=== PATIENT | female | born 1980 ===

== ENCOUNTER 2020-09-13 19:22 | Emergency (ER) | payer OTHER, SELFPAY ==
[2020-09-13 19:34] VITALS: BP 159/101; PULSE 99; RESP 18; TEMP 36.3; O2SAT 99; BMI 31.6
--- NOTE | 2020-09-13 23:11 | ED_ITS ---
HPI - COVID General: Chief Complaint: COVID symptoms Stated Complaint: covid symptoms Time Seen by Provider: 09/13/20 23:11 Triage information: No fever, cough or shortness of breath . Exposure to COVID + person last 14 days History of Present Illness: HPI Narrative: Patient is a 40-year-old female comes to the ED with upper respiratory symptoms. Patient says approximately 4 days ago she developed a sore throat and nasal congestion. She says her sore throat has went away but she still has some nasal congestion and a headache. She was around her parents for the holidays and they tested positive for COVID- 19. 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 Denies any cough, chest pain, shortness of breath, fevers, chills, nausea/vomiting, bladder or bowel symptoms. COVID 19 common symptoms: positive headache(s) (She described as sinus headache ), throat pain (started 4 days ago, but has now resolved) and nasal congestion; negative fever(s), chills, non-productive cough, productive cough, dyspnea, fatigue, nausea, vomiting or diarrhea COVID 19 other sytmptoms: negative chest pain COVID Results: SARS-CoV-2 Antigen (Rapid) Positive (Negative) H 09/13/20 23:44 09/13/20 Nasal/Oral Coronavirus 2019 PCR Pending 09/13/20 23:23 09/13/20 Review of Systems Const: Denies: fever(s), chills or fatigue Eyes: Denies: change in vision or eye discomfort ENMT: Reports: throat pain (started 4 days ago, but has now resolved), nasal discharge and nasal congestion; Denies: odynophagia Card: Denies: chest pain, palpitations, edema, swelling of feet/ankles, dyspnea on exertion or orthopnea Resp: Denies: dyspnea, productive cough or non-productive cough GI: Denies: abdominal pain, nausea, vomiting, diarrhea, constipation or hematochezia : Denies: flank pain, dysuria or hematuria Musc: Denies: neck pain, back pain or extremity swelling Skin/Breast: Denies: rash or new lesions Neuro: Reports: headache(s) (She described as sinus headache ); Denies: numbness in extremities or weakness in extremities PFSH ED PFSH: Social History Smoking and tobacco status: never smoked Alcohol intake: never Female Reproductive History: Date of last menstrual period: 09/06/20 Physical Exam Const: COMMON NORMALS: no acute distress, patient oriented x3, healthy appearing and alert GENERAL APPEARANCE: cooperative and comfortable HENMT: COMMON NORMALS: normocephalic HEAD & SCALP: normocephalic MOUTH: Normal oral and palatal mucosa present THROAT: posterior oropharynx normal and uvula midline Eye: COMMON NORMALS: Equal, round and reactive pupils present and conjunctivae normal CONJUNCTIVA: Yes conjunctivae normal PUPIL: Yes Equal, round and reactive pupils present Neck/C-Spine: COMMON NORMALS: supple GENERAL: Yes normal visual inspection Resp: COMMON NORMALS: normal respiratory effort, No retractions, No use of accessory muscles and clear to auscultation bilaterally EFFORT & INSPECTION: Yes able to speak in complete sentences, No tachypneic, No respiratory distress and No labored AUSCULTATION: clear to auscultation bilaterally Cardio: COMMON NORMALS: regular rate, regular rhythm, S1 normal heart sound present, S2 normal heart sound present, No gallops present (Cardio), No clicks present (Cardio), No murmurs present (Cardio) and Peripheral pulses 2+ throughout RATE: regular rate RHYTHM: regular rhythm HEART SOUNDS: S1 normal heart sound present and S2 normal heart sound present PERIPHERAL PULSES: Peripheral pulses 2+ throughout GI: COMMON NORMALS: Normal to inspection, nondistended, normoactive bowel sounds present, Soft to palpation, non-tender and no masses PALPATION: Yes Soft to palpation : COMMON NORMALS: Yes no CVA tenderness BLADDER/KIDNEY EXAM: Yes no CVA tenderness Back/Pelvis: COMMON NORMALS: no CVA tenderness Extremity: COMMON NORMALS: normal to inspection Neuro: COMMON NORMALS: patient oriented x3 and moves all extremities SENSORIUM/ORIENTATION: Yes alert Skin: GENERAL SKIN EXAM: dry skin Course Vital Signs: Vital signs: Vital Signs Temperature 97.4 F L 09/13/20 19:34 Pulse Rate 94 09/14/20 00:55 Respiratory Rate 18 09/14/20 00:55 Blood Pressure 150/101 09/13/20 23:13 Pulse Oximetry 98 09/14/20 00:55 MDM - COVID MDM Narrative: Medical decision making narrative: 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 Patient was with family over the holidays and one of the family members tested positive for Covid. Patient is having very mild symptoms. Denies any chest pain, shortness of breath or cough. O2 saturation 98% on room air. Respirations 18. Rapid Covid test was performed and patient tested positive. Patient was discharged and given quarantine instructions. Return to ED precautions given. Follow-up with PCP in 7 to 10 days for reevaluation. Patient understood and agreed with plan. Lab Data: Attestation: I reviewed the patient's lab results. Labs: Lab Results 09/13/20 09/13/20 Range/Units 23:23 23:44 SARS-CoV-2 Ag (Rap id) Positive H (Negative) Group A Strep Rapi d Negative (Negative) COVID Results: SARS-CoV-2 Antigen (Rapid) Positive (Negative) H 09/13/20 23:44 09/13/20 Nasal/Oral Coronavirus 2019 PCR Pending 09/13/20 23:23 09/13/20 Discharge Plan Discharge Patient Disposition: Home Clinical Impression: COVID-19 virus detected, Upper respiratory symptom Condition: Stable Prescriptions: No Action fexofenadine [Susan Allergy] 180 mg tablet 180 mg PO DAILY RF: 0 pseudoephedrine HCl [Sudafed 12 Hour] 120 mg tablet extended release 120 mg PO BID PRN (Reason: nasal congestion) Qty: 30 RF: 0 azithromycin 250 mg tablet See Rx Instructions PO .COMPLEX Qty: 6 RF: 0 Discharge Orders: Discharge ED (Routine); Ordered 09/14/20 Ordered By: Bayron Cabrera Discharge Diet: Regular Discharge Activity: Limit activity as instructed Patient Instructions: Upper Respiratory Infection (ED), Viral Syndrome (ED) Activity Restrictions/Additional Instructions: Follow-up with medical provider as directed in 7-10 days. COVID testing was performed and you tested positive. Self quarantine for next 10 days. Make sure you are fever free for over 24 hours before returning to work. Take ibuprofen or Tylenol for fevers. Drink plenty of fluids and stay hydrated. Symptom manage ment with [id number] cough and nasal decongestant meds. Return to the ER or your medical provider if condition worsens. Please read and understand discharge instructions. If any questions, please ask. Coding Level of Care Code ED Credit Operations Specialist for Chg Fwd Exam Comprehensive
[2020-09-13 23:13] VITALS: BP 150/101; PULSE 99; O2SAT 100; O2SAT 99
[2020-09-13 23:57] LABS: Rapid Strep A Test Negative (Negative)
[2020-09-14 00:41] LABS: SARS Covid-2 Antigen Positive (Negative)
[2020-09-14 00:55] VITALS: PULSE 94; RESP 18; O2SAT 98
== END 2020-09-14 00:56 | disposition home or self-care (01) ==
PROVIDERS: Emergency Provider Physician Assistant
DX: U07.1 COVID-19 (principal)
CPT/HCPCS: 12345; 87081; 87426; 87635; 87880; 99282